=== PATIENT | male | born 1970 | race Caucasian/White ===

== ENCOUNTER 2024-07-23 07:08 | Emergency (ER) | payer BC, SELFPAY ==
[2024-07-23 07:11] VITALS: BP 166/100
[2024-07-23 07:36] VITALS: BMI 34.0
--- NOTE | 2024-07-23 08:20 | EDRN ---
Dr. Patel (ED resident) was in to see pt at this time.
[2024-07-23 08:29] VITALS: BP 134/94
--- NOTE | 2024-07-23 08:59 | WOUNDNOTE ---
WOUND/SKIN CAR#E NOTE: Pt identified by name and .
L foot
L foot
L foot
L foot
--- NOTE | 2024-07-23 09:05 | ED.SKININJ ---
HPI-Injury
General
Chief Complaint: Bite
Source: patient
Exam Limitations: none
Time Seen by Provider: 07/23/24 07:31
Nursing documentation reviewed up to this point in time: agreed with
History of Present Illness-Injury
Initial Injury comments:
Patient presents to ED secondary to worsening right foot pain with swelling over the past 1 week. Patient states that while he was fishing 1 week ago, while wearing boot and socks, he felt 'prick' sensation along with itchiness. Patient proceeded
to remove his shoes and socks, but he was unable to visualize any insects or other foreign bodies. Since then, redness on top of his right foot at the base of his right first and second digit has increased in size. This morning, upon waking up,
patient felt chills sensation. Patient spoke with his family member, who is a physician, who recommended patient come to ED for an evaluation. Denies nausea or vomiting. Denies direct trauma. Denies previous history of skin infection.
Review of Systems
Review of Systems
Allergies reviewed?: Yes
Constitutional: Reports no symptoms
EENT: Reports no symptoms
Respiratory: Reports no symptoms
Cardiac: Reports no symptoms
ABD/GI: Reports no symptoms
Musculoskeletal: Reports other (foot pain w swelling)
Skin: Reports other (foot redness/swelling)
Neurological: Reports no symptoms
Phy Exam
Physical Exam
Physical Exam:
Physical Exam
General: no apparent distress, not acutely ill. afebrile
Head: nc/at. eomi
Neck: supple. no meningeal signs.
Neuro: alert and oriented. no focal neurological deficits
Skin: right foot: on dorsal aspect at base of 1st/2nd phalanx, an area of erythema/swelling noted, approx 4cm in diameter, without active drainage.
Psychiatric: well kept. interactive and cooperative
Extremities: no calf tenderness.
Course
Orders/Labs/Results
Orders:
Orders
07/23/24 09:05
CR Foot - Left Min 3 Views Urgent
Comment:
Reason For Exam: pain w swelling
07/23/24 09:14
Basic Metabolic Panel Urgent
Complete Blood Count/With Diff Urgent
Lyme Progressive Urgent
Abnormal Lab Results
07/23/24
09:14
Absolute Lymphs (auto) 1.0 L 10^3/uL
(1.2-3.4)
Absolute Monos (auto) 0.7 H 10^3/uL
(0.1-0.6)
Lymphocytes % 17.1 L %
(20.5-51.1)
Monocytes % 12.5 H %
(1.7-9.3)
Glucose 101 H mg/dl
(70-99)
07/23/24 09:14
07/23/24 09:14
Vital Signs
Initial and Last Documented VS:
Initial Vital Signs
Temp Pulse Resp BP Pulse Ox
100.3 F 94 16 166/100 98
07/23/24 07:11 07/23/24 07:11 07/23/24 07:11 07/23/24 07:11 07/23/24 07:11
Last Documented Vital Signs
Temp Pulse Resp BP Pulse Ox
98.9 F 63 16 136/89 97
07/23/24 09:05 07/23/24 10:18 07/23/24 10:18 07/23/24 10:18 07/23/24 10:18
MDM/Problems Addressed
MDM/Problems Addressed:
X-ray: no acute findings
History and exam concerning for potential superimposed infection, especially with patient's presenting symptoms, i.e. chills along with expansion of redness and swelling. Blood work within normal limits and patient remains afebrile, hemodynamic
stable, and nontoxic-appearing during observation ED. After discussion with patient, decision made to discharge patient home with antibiotics, i.e. doxycycline, along with close follow-up as an outpatient with either his primary care physician or
referred [facility], as he has moved recently.
Lyme titer pending.
*Critical Care Note
Total Time (30-74mins, 75-104mins- exclusive of procedures): Not Applicable
ED Attending Note
-
Portions of this chart may have been created with voice recognition software.� Occasional wrong word or��sound alike� substitutions may have occurred due to the inherent limitations of voice recognition software.
Discharge Plan
Departure
Patient Disposition: Home (Routine Discharge)
Date of Disposition: 07/23/24
Time of Disposition: 09:55
Patient with high blood pressure during this ER visit?: Yes
Condition: Good
Discharge Problem:
Cellulitis
Instructions: Cellulitis (skin infection) in adults - Discharge instructions
Prescriptions:
New
doxycycline hyclate 100 mg tablet
100 mg PO BID Qty: 14 0RF
Referrals:
[facility] [Provider Group]
[facility] [Outside]
Arcenio Avila MD [Family Provider] -
Activity Restrictions/Additional Instructions:
As discussed, please follow-up with your primary care physician and/or referred medical clinic for reevaluation this week. Your prescription has been sent electronically to [facility] pharmacy in [facility].
Interventions
Interventions:
*Risk Screen - Suicide Last Done: 07/23/24 07:11
*General Assessment Last Done: 07/23/24 07:36
*Neglect/Abuse Screening Last Done: 07/23/24 07:11
ED- Fall Risk Assessment Last Done: 07/23/24 07:38
*ED COVID-19 Vaccine History Last Done: 07/23/24 07:36
*Nursing Disposition Last Done: 07/23/24 10:19
ED-Skin Assessment Last Done: 07/23/24 07:38
Discharge Date and Time
Discharge Date/Time: 07/23/24 10:20
Print Language: SPANISH
[2024-07-23 09:27] LABS: % Basophils 0.5 % (0-2); % Eosinophils 1.5 % (0-6); % Immature Granulocytes 0.5 % (0-0.5); % Lymphocytes 17.1 % (20.5-51.1); % Monocytes 12.5 % (1.7-9.3); % Neutrophils 67.9 % (42.2-75.2); Absolute Eosinophils 0.1 10^3/uL (0-0.7); Absolute Monocytes 0.7 10^3/uL (0.1-0.6); Hematocrit 44.7 % (39.0-52.0); Hemoglobin 15.5 g/dL (13.0-18.0); Mean Corp Hgb Conc. 34.7 g/dL (33.0-37.0); Mean Corpuscular Hgb 29.2 pg (27.0-31.0); Mean Corpuscular Volume 84.2 fL (80.0-94.0); Mean Platelet Volume 10.3 fL (7.4-10.4); Nucleated Red Blood Cells % 0 % (-); Platelet Count 159 10^3/uL (130-400); Red Blood Cell Count 5.31 10^6/uL (4.70-6.10); Red Cell Dist. Width 12.7 % (11.5-14.5); White Blood Cell Count 5.9 10^3/uL (4.8-10.8)
[2024-07-23 09:40] LABS: Blood Urea Nitrogen 15 mg/dl (9-20); Calcium 9.1 mg/dl (8.4-10.2); Carbon Dioxide 27 mmol/L (22-30); Chloride 104 mmol/L (98-107); Estimated Creatinine Clearance 105 ml/min; Glucose 101 mg/dl (70-99); Potassium 4.2 mmol/L (3.5-5.1); Sodium 140 mmol/L (135-145); eGFR > 60.00
--- NOTE | 2024-07-23 10:17 | EDRN ---
Area of redness outlined w/ skin pen and dated.
[2024-07-23 10:18] VITALS: BP 136/89
[2024-07-23 15:14] LABS: Lyme Antibody Screen, EIA Negative (Negative)
== END 2024-07-23 10:20 | disposition home or self-care (01) ==
LOC: EMR 07:08
PROVIDERS: EMERGENCY PHYSICIAN Emergency Medicine; FAMILY PHYSICIAN Internal Medicine
DX: L03.115 Cellulitis of right lower limb (principal); R68.83 Chills (without fever); M79.671 Pain in right foot; I10 Essential (primary) hypertension
CPT/HCPCS: 99283; 73630; 80048; 85025; 86618